=== PATIENT | female | born 1990 | race Caucasian/White ===

== ENCOUNTER 2019-02-02 08:17 | Emergency (ER) | payer OTHER, MEDICAID ==
[2019-02-02] MEDS: HYDROCODONE/APAP (5/325) TAB PO (08:56)
== END 2019-02-02 10:28 | disposition home or self-care (01) ==
LOC: FTE 10:28
DX: M25.531 Pain in right wrist (principal); M54.5 Low back pain
CPT/HCPCS: 72100; 73110-RT; 81025; 99284-25

== ENCOUNTER 2019-04-08 13:16 | Emergency (ER) | payer OTHER ==
[2019-04-08] MEDS: SOD CHLORIDE 0.9% 1,000 ML IV (13:54)
[2019-04-08] MEDS: ONDANSETRON 4 MG INJ IV (13:54)
[2019-04-08] MEDS: MECLIZINE 12.5 MG TAB PO (13:54)
[2019-04-08 13:58] LABS: ADD MAN DIFF? NO
[2019-04-08 14:01] LABS: WHITE BLOOD COUNT 8.2 10^3/ul (4.8-10.8)
[2019-04-08 14:01] LABS: BASOPHILS % 0.2 % (0.0-2.0); EOSINOPHILS # 0.1 10^3/ul (0.0-0.5); EOSINOPHILS % 1.5 % (0.0-7.0); HEMOGLOBIN 12.6 g/dl (12.0-16.0); LYMPHOCYTES # 2.8 10^3/ul (0.8-2.9); LYMPHOCYTES % 34.3 % (15.0-51.0); MEAN CORPUSCULAR HEMOGLOBIN 29.5 pg (29.0-33.0); MEAN CORPUSCULAR HGB CONC 32.3 g/dl (32.0-37.0); MEAN CORPUSCULAR VOLUME 91.3 fl (82.0-101.0); MEAN PLATELET VOLUME 10.4 fl (7.4-10.4); MONOCYTE # 0.7 10^3/ul (0.3-0.9); MONOCYTES % 8.1 % (0.0-11.0); NEUTROPHIL # 4.6 10^3/ul (1.6-7.5); NEUTROPHILS % 55.7 % (39.0-77.0); PLATELET COUNT 233 10^3/UL (140-415); RED BLOOD COUNT 4.27 10^6/ul (4.20-5.40); RED CELL DISTRIBUTION WIDTH 12.9 % (11.5-14.5)
[2019-04-08 14:04] LABS: ADD UMIC NO; UR ASCORBIC ACID NEGATIVE (NEGATIVE); UR BACTERIA FEW /HPF (NONE SEEN); UR BILIRUBIN (Dip) NEGATIVE (NEGATIVE); UR BLOOD (Dip) NEGATIVE (NEGATIVE); UR CLARITY SLIGHTLY CLOUDY (CLEAR); UR COLOR STRAW (YELLOW); UR GLUCOSE (Dip) NEGATIVE (NEGATIVE); UR KETONES (Dip) NEGATIVE (NEGATIVE); UR LEUKOCYTE ESTERASE (Dip) NEGATIVE Leu/ul (NEGATIVE); UR NITRITE (Dip) NEGATIVE (NEGATIVE); UR RBC 1 /HPF (0-5); UR SPECIFIC GRAVITY (Dip) 1.009 (1.003-1.030); UR SQUAMOUS EPITHELIAL CELL FEW /HPF (FEW); UR TOTAL PROTEIN (Dip) NEGATIVE (NEGATIVE); UR UROBILINOGEN (Dip) NEGATIVE (NEGATIVE); UR WBC 1 /HPF (0-5)
[2019-04-08 14:18] LABS: ANION GAP 6 (5-13); BLOOD UREA NITROGEN 11 mg/dl (7-20); CALCIUM 9.2 mg/dl (8.4-10.2); CARBON DIOXIDE 29 mmol/L (21-31); CHLORIDE 106 mmol/L (97-110); CREATININE 0.61 mg/dl (0.44-1.00); Estimated GFR > 60 mL/min (>60); GLUCOSE 90 mg/dl (70-220); POTASSIUM 4.2 mmol/L (3.5-5.1); SODIUM 141 mmol/L (135-144)
== END 2019-04-08 15:02 | disposition home or self-care (01) ==
LOC: FTE 13:16
DX: R42 Dizziness and giddiness (principal); R11.2 Nausea with vomiting, unspecified
CPT/HCPCS: 36415; 80048; 81001; 81003; 84703; 85025; 96374; 99284-25

== ENCOUNTER 2019-04-20 11:57 | Emergency (ER) | payer OTHER ==
[2019-04-20] MEDS: IBUPROFEN 800 MG TAB PO (13:49)
== END 2019-04-20 15:06 | disposition home or self-care (01) ==
LOC: E/R 11:57
DX: S90.221A Contusion of right lesser toe(s) with damage to nail, initial encounter (principal); W21.89XA Striking against or struck by other sports equipment, initial encounter; Y92.322 Soccer field as the place of occurrence of the external cause
CPT/HCPCS: 73630; 99283-25